=== PATIENT | female | born 1995 | race Caucasian/White ===

== ENCOUNTER 2017-07-06 17:59 | Inpatient (IN) | payer OTHER ==
[~2017-07-06] VITALS: Ht 154.9 cm; Wt 72.6 kg
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
--- NOTE | ~2017-07-06 | PN ---
Unit #: [id number] #: [id number] Patient: REGINALD UMANA [id number] [facility] [address] [place] [address] [id number] MR#: [id number] NAME: REGINALD UMANA ROOM: P252 Age: 21 Sex: F Admission Date: 07/06/2017 : 1995 Attending Physician: Abril Lawson M.D. Admitting Physician: Abril Lawson M.D. Primary Care Physician: Katie Doctor Not In System [facility] PROGRESS NOTES DATE July 09, 2017 DISCUSSION Ms. Umana is a 21-year-old white female, who was seen today and chart was reviewed and the case was discussed with the staff. She has been anxious, withdrawn, and rather seclusive to herself, but has been polite, pleasant, cooperative, with the treatment recommendations and she has been taking the medications and tolerating them fairly well with no reported side effects. MENTAL STATUS EXAMINATION Young white female, who was casually dressed with fair personal hygiene and appears to be in no acute distress or discomfort. The patient was awake and alert on interaction with intact orientation. Her mood was anxious with a congruent affect. Her speech is slow and goal-directed. She denies any suicidal or homicidal ideations, and also denies any auditory or visual hallucinations. Her insight and judgment remain slightly impaired. TREATMENT PLAN 1. We will continue her on her current medications and treatment protocol, and will monitor her response to the medications, and make further adjustments as needed. 2. We will continue to followup. Dictated by... Ayaan Suresh/williams TD: 07/10/2017 06:07 JOB #: [id number] Unit #: [id number] #: [id number] Patient: REGINALD UMANA PROGRESS NOTES Page 1 of 1 X Abril Lawson MD PROGRESS NOTE
--- NOTE | ~2017-07-06 | DS ---
Unit #: [id number] #: [id number] Patient: REGINALD UMANA [id number] [facility] [address] [place] [address] [id number] MR#: [id number] NAME: REGINALD UMANA ROOM: P252 Age: 21 Sex: F Admission Date: 07/06/2017 : 1995 Discharge Date: 07/12/2017 Attending Physician: Abril Lawson M.D. Primary Care Physician: Generic Doctor Not In System DISCHARGE SUMMARY IDENTIFYING DATA Ms. Umana is a 21-year-old white female, who is a resident of [place], [place], and was referred and transferred to us from [facility] on a voluntary basis. DISCHARGE DIAGNOSES Psychiatric: Bipolar disorder, most recent episode depressed, recurrent, moderate, without psychotic features; borderline personality disorder. Medical: None. Stressors: Mild psychosocial stressors. HISTORY OF PRESENT ILLNESS Please see initial psychiatric evaluation for details. PAST PSYCHIATRIC HISTORY Please see initial psychiatric evaluation for details. PAST MEDICAL HISTORY Please see initial psychiatric evaluation for details. HOSPITAL COURSE The patient [facility] and was oriented to the hospital environment. Routine p.r.n. medications were initiated, and she was started back on her home medications and medications were adjusted and Lexapro and Abilify were regulated and she was closely monitored. She was initially seen to be very withdrawn, depressed, and seclusive to herself, though was able to show a slow and therapeutic response to the medications and was willing to continue treatment on an outpatient basis. She was denying any suicidal or homicidal ideations and as such, it was decided that she will be discharged home and will continue treatment on an outpatient basis. DISCHARGE MEDICATIONS Lexapro 20 mg a day for depression and Abilify 5 mg at bedtime for depression. DISCHARGE CONDITION Stable. PROGNOSIS Fair. Dictated by... Unit #: [id number] #: [id number] Patient: REGINALD UMANA Ayaan Suresh/modl TD: 07/12/2017 08:22 JOB #: [id number] DISCHARGE SUMMARY Page 1 of 1 X Abril Lawson MD DISCHARGE SUMMARY
--- NOTE | ~2017-07-06 | PN ---
Unit #: [id number] #: [id number] Patient: REGINALD UMANA [id number] [facility] [address] [place] [address] [id number] I MR#: [id number] NAME: REGINALD UMANA ROOM: P252 Age: 21 Sex: F Admission Date: 07/06/2017 : 1995 Attending Physician: Abril Lawson M.D. Admitting Physician: Abril Lawson M.D. Primary Care Physician: Generic Doctor Not In System [facility] PROGRESS NOTES DATE 07/11/2017 DISCUSSION Ms. Umana is a 21-year-old white female who was seen today and chart was reviewed and case was discussed with the staff. She has been doing fairly well and has been showing improvement in her depression anxiety as she has been calm and cooperative with treatment recommendations. She has been taking medications and tolerating them fairly well with no reported side effects. MENTAL STATUS EXAMINATION Young white female who was casually dressed with fair personal hygiene, appears to be in no acute distress or discomfort. She was awake and alert on interaction with intact orientation. Her mood was anxious with congruent affect. Her speech was slow and goal-directed. She denies any suicidal or homicidal ideations. Her insight and judgement remains slightly impaired. TREATMENT PLAN 1. We will continue her on her current medications and treatment protocol. We will monitor her response to the medication and make further adjustments as needed. 2. We will continue to follow up. Dictated by... Ayaan Suresh/matt TD: 07/11/2017 23:37 JOB #: [id number] Unit #: [id number] #: [id number] Patient: REGINALD UMANA PROGRESS NOTES Page 1 of 1 X Abril Lawson MD PROGRESS NOTE
--- NOTE | ~2017-07-06 | HP ---
Unit #: [id number] #: [id number] Patient: REGINALD UMANA [id number] [place] [address] [id number] I MR#: [id number] NAME: REGINALD UMANA ROOM: P252 Age: 21 Sex: F Admission Date: 07/06/2017 : 1995 Attending Physician: Abril Lawson M.D. Admitting Physician: Abril Lawson M.D. Primary Care Physician: Generic Doctor Not In System HISTORY AND PHYSICAL HISTORY OF PRESENT ILLNESS The patient is a 21 year old female admitted to [address] [place] [address] on 07/06/2017 for suicide attempt. PAST MEDICAL HISTORY 1. HSV-1. 2. Spine issues. 3. Asthma. PAST SURGICAL HISTORY Tonsils and adenoids. ALLERGIES No known drug allergies. SOCIAL HISTORY She lives with her dad and her . She prostitutes herself to get money. Smokes 1/2 pack of cigarettes daily and uses marijuana and alcohol socially. FAMILY HISTORY Noncontributory. REVIEW OF SYSTEMS CONSTITUTIONAL: No fever or chills. HEENT: Denies any sore throat, ear pain or runny nose. CARDIOVASCULAR: Denies chest pain, irregular heart rhythm or palpitations. CHEST: Denies shortness of breath or cough. No hemoptysis. GASTROINTESTINAL: Denies nausea, vomiting, diarrhea or chronic constipation. ENDOCRINE: Denies history of increased thirst or urination. No recent significant weight loss or gain. GENITOURINARY: Denies dysuria, frequency, or hematuria. SKIN: Denies any rashes. HEMATOLOGIC: Denies history of increased bleeding or bruising. MUSCULOSKELETAL: Denies any hot, swollen joints. No generalized muscle pain. NEUROLOGIC: Denies problems with vision or speech. No frequent, severe headaches. No numbness, tingling or weakness in any extremities. Denies loss of bladder or bowel control. CURRENT MEDICATIONS 1. Cetirizine. Unit #: [id number] #: [id number] Patient: REGINALD UMANA 2. Lexapro. 3. Abilify. 4. Sucralfate. 5. Pantoprazole. PHYSICAL EXAMINATION GENERAL: She is awake, alert, oriented, in no acute distress. VITAL SIGNS: Temperature 98.0, heart rate 67, respirations 16, blood pressure 122/77. HEIGHT: 5 feet 1. WEIGHT: 160 pounds. SKIN: Warm and dry without rash or lesion. HEENT: Normocephalic. TMs not viewed. Oral and nasal passages clear. Conjunctivae clear. PERRLA. EOMs intact. NECK: Supple without lymphadenopathy or thyromegaly. HEART: Regular rate and rhythm without murmur. LUNGS: Clear. ABDOMEN: Soft, nontender. : Not done. EXTREMITIES: No evidence of cyanosis, clubbing or edema. Moves all without focal deficit. NEUROLOGICAL: Grossly within normal limits. Cranial Nerves: II: Visual hutchins are intact. III, IV AND : Extraocular movements are intact. Pupils are equal, round and reactive to light. V: Facial sensation is grossly normal. VII: Facial movements and expression are normal. VIII: Auditory acuity grossly intact. IX, X: Uvula is midline. Phonation is normal. XI: Patient shrugs shoulders and turns head normally. XII: Tongue protrudes in the midline. Sensory and Motor Function: Sensory and motor sensation is grossly normal. Motor: moves all extremities well. Coordination: Gait is normal. Deep Tendon Reflexes: Intact. IMPRESSION 1. Psychiatric admission. 2. HSV-1. 3. Spine issues. 4. Asthma. RECOMMENDATIONS PSYCHIATRIC: Per psychiatrist. MEDICAL: No contraindication to participate in facility's activities. MEDICAL PROGNOSIS Good. MEDICAL CONDITION Stable. Dictated by... Donald Umana/toya Unit #: [id number] #: [id number] Patient: REGINALD UMANA TD: 07/07/2017 19:16 JOB #: [id number] HISTORY AND PHYSICAL Page 1 of 1 X JYOTHI MARIE APRN HISTORY AND PHYSICAL
--- NOTE | ~2017-07-06 | PN ---
Unit #: [id number] #: [id number] Patient: REGINALD UMANA [id number] [facility] [address] [place] [address] [id number] I MR#: [id number] NAME: REGINALD UMANA ROOM: P252 Age: 21 Sex: F Admission Date: 07/06/2017 : 1995 Attending Physician: Abril Lawson M.D. Admitting Physician: Abril Lawson M.D. Primary Care Physician: Generic Doctor Not In System [facility] PROGRESS NOTES DATE OF SERVICE: 07/08/2017 SUBJECTIVE Ms. Umana is a 21-year-old white female with mood disorder, who was seen today and chart was reviewed, and case was discussed with the staff. She has been anxious, withdrawn and rather seclusive to herself. Meanwhile, she has been cooperative with treatment recommendation and has been taking the medications and tolerating them fairly well with no reported side effects. MENTAL STATUS EXAMINATION Young white female, who was casually dressed with fair personal hygiene, appears to be in no acute distress or discomfort. She was awake and alert on interaction with intact orientation. Her mood was anxious with a congruent affect. She denies any suicidal or homicidal ideations. Her insight and judgment remain slightly impaired. TREATMENT PLAN 1. We will continue on her current medications and treatment protocol. We will monitor her response to medications and make further adjustments as needed. 2. We will continue to follow up. Dictated by... Ayaan Suresh/sky TD: 07/09/2017 23:33 JOB #: [id number] [facility] PROGRESS NOTES Page 1 of 1 X Abril Lawson MD PROGRESS NOTE
--- NOTE | ~2017-07-06 | PN ---
Unit #: [id number] #: [id number] Patient: REGINALD UMANA [id number] [facility] [address] [place] [address] [id number] I MR#: [id number] NAME: REGINALD UMANA ROOM: P252 Age: 21 Sex: F Admission Date: 07/06/2017 : 1995 Attending Physician: Abril Lawson M.D. Admitting Physician: Abril Lawson M.D. Primary Care Physician: Generic Doctor Not In System [facility] PROGRESS NOTES DATE OF SERVICE 07/10/2017 DISCUSSION Ms. Umana is a 21-year-old white female who was seen today. Chart was reviewed and case was discussed with the staff. She has been anxious, withdrawn, and rather seclusive to herself. Meanwhile, she has been cooperative with treatment recommendations and has been taking the medications and tolerating them fairly well with no reported side effects. MENTAL STATUS EXAMINATION Young white female who is casually dressed with fair personal hygiene, appears to be in no acute distress or discomfort. She was awake and alert on interaction with intact orientation. Her mood is anxious and depressed with congruent affect. Her speech is slow and goal-directed. She denies any current suicidal or homicidal ideations. Her insight and judgment remain slightly impaired. TREATMENT PLAN 1. We will continue her on her current medications and treatment protocol. We will monitor her response to the medications and make further adjustments as needed. 2. We will continue to follow up. Dictated by... Ayaan Suresh/arpitg TD: 07/10/2017 13:00 JOB #: [id number] Unit #: [id number] #: [id number] Patient: REGINALD UMANA [facility] PROGRESS NOTES Page 1 of 1 X Abril Lawson MD PROGRESS NOTE
== END 2017-07-12 11:30 | disposition home or self-care (01) | DRG 885 ==
LOC: P2L 23:03
DX: F31.32 Bipolar disorder, current episode depressed, moderate (principal); B00.89 Other herpesviral infection; F60.3 Borderline personality disorder; J45.909 Unspecified asthma, uncomplicated; F41.9 Anxiety disorder, unspecified; F17.210 Nicotine dependence, cigarettes, uncomplicated